=== PATIENT | female | born 1990 | race African-American/Black ===

== ENCOUNTER 2021-04-16 05:01 | Emergency (ER) | payer OTHER ==
[~2021-04-16] VITALS: Ht 152.4 cm; Wt 55.0 kg
[2021-04-16] MEDS ORDERED: ACETAMINOPHEN WITH CODEINE 300/30MG TABLET PO ONE (05:30)
[2021-04-16] MEDS ORDERED: MORPHINE SULFATE 4 MG/ML CPJ (NOT FOR IM USE) IV ONE (05:45)
[2021-04-16] MEDS ORDERED: ONDANSETRON HCL 4MG/2ML INJ IV ONE (05:45)
[2021-04-16] MEDS ORDERED: HYDR-4346 MT (06:56)
[2021-04-16] MEDS ORDERED: IBUP-2029 MT (06:57)
[2021-04-16] MEDS ORDERED: ONDA4TAB5 MT (06:58)
[2021-04-16] MEDS ORDERED: HYDROCODONE/ACETAMINOPHEN 5/325MG TABLET PO ONE (07:15)
[2021-04-16 07:30] VITALS: BP 143/81
== END 2021-04-16 08:28 | disposition home or self-care (01) ==
LOC: ER 05:01
DX: S82.854A Nondisplaced trimalleolar fracture of right lower leg, initial encounter for closed fracture (principal); Z88.0 Allergy status to penicillin; V18.0XXA Pedal cycle driver injured in noncollision transport accident in nontraffic accident, initial encounter; Y93.89 Activity, other specified; Y92.488 Other paved roadways as the place of occurrence of the external cause; Y99.8 Other external cause status
CPT/HCPCS: 29505; 73590; 73610; 73630; 81025; 96374; 96375; 99284; J2270; J2405